=== PATIENT | male | born 1970 | race Caucasian/White ===

== ENCOUNTER 2021-07-18 02:35 | Emergency (ER) | payer BC ==
[2021-07-18] MEDS ORDERED: Ondansetron 4 MG/2 ML SDV IVPUSH ONE ×2 (02:59→04:14)
[2021-07-18] MEDS ORDERED: Famotidine 20 MG/2 ML SDV IVPUSH ONE (02:59)
[2021-07-18 03:45] LABS: CORONAVIRUS COVID-19 NAA NEGATIVE (NEGATIVE)
[2021-07-18] MEDS ORDERED: Loperamide 2 MG Cap PO ONE (04:13)
== END 2021-07-18 05:02 | disposition home or self-care (01) ==
LOC: JD.ED 02:35
DX: R55 Syncope and collapse (principal); R19.7 Diarrhea, unspecified; Z91.041 Radiographic dye allergy status; Z72.0 Tobacco use; Z79.899 Other long term (current) drug therapy; Z20.822 Contact with and (suspected) exposure to COVID-19
CPT/HCPCS: 0241U; 36415; 80053; 83690; 83735; 85025; 85610; 93005; 96374; 96375; 96376; 99284; A9270; J2405; J3490; 93010

== ENCOUNTER 2024-01-05 16:03 | Emergency (ER) | payer BC, OTHER | END 2024-01-05 18:02 | disposition left against medical advice (07) | LOC: JD.ED 16:03 | DX: Z53.21 Procedure and treatment not carried out due to patient leaving prior to being seen by health care provider (principal) ==

== ENCOUNTER 2024-01-06 07:41 | Emergency (ER) | payer OTHER ==
[2024-01-06] MEDS: methylPREDNISolone Sodium Succinate 125 MG/2 ML SDV IVPUSH ONE (08:27)
[2024-01-06] MEDS: Famotidine 20 MG/2 ML SDV IVPUSH ONE (08:30)
[2024-01-06] MEDS: diphenhydrAMINE 50 MG/ML SDV IVPUSH ONE (08:33)
[2024-01-06] MEDS: Sodium Chloride 0.9% 1,000 ML IV SCH (08:35)
[2024-01-06] MEDS: Iopamidol 612 MG/ML 100 ML Bottle IVPUSH ONE (09:47)
== END 2024-01-06 10:38 | disposition home or self-care (01) ==
LOC: JD.ED 07:41
DX: R22.1 Localized swelling, mass and lump, neck (principal); I10 Essential (primary) hypertension; E78.00 Pure hypercholesterolemia, unspecified; Z91.041 Radiographic dye allergy status; Z88.8 Allergy status to other drugs, medicaments and biological substances; Z79.899 Other long term (current) drug therapy
CPT/HCPCS: 70491; 70491-26; 96374; 96375; 99283-25; J1200; J2919; J3490; J7030; Q9967

== ENCOUNTER 2024-04-25 11:46 | Day surgery (SDC) | payer OTHER ==
[~2024-04-25 11:46] MED LIST: Lactated Ringers 1,000 ML IV SCH; Sodium Chloride 0.9% 10 ML Syringe FLUSH PRN; Sodium Chloride 0.9% 10 ML Syringe FLUSH SCH
[2024-04-25] MEDS ORDERED: HYDROmorphone 0.5 MG/0.5 ML Syringe IVPUSH PRN (12:58)
[2024-04-25] MEDS ORDERED: fentaNYL 100 MCG/2 ML SDV ONE (12:58)
[2024-04-25] MEDS ORDERED: Propofol 200 MG/20 ML SDV ONE (12:58)
[2024-04-25] MEDS ORDERED: fentaNYL 100 MCG/2 ML SDV IVPUSH PRN (12:58)
[2024-04-25] MEDS ORDERED: Ondansetron 4 MG/2 ML SDV IVPUSH PRN (12:58)
[2024-04-25] MEDS ORDERED: Midazolam 1 MG/ML 2 ML SDV ONE (12:58)
[2024-04-25] MEDS ORDERED: Ropivacaine 0.5% 5 MG/ML 30 ML SDV ONE (12:58)
[2024-04-25] MEDS: Albuterol/Ipratropium 3.0-0.5 MG/3 ML Neb Soln NEB ONE (13:23)
[2024-04-25] MEDS ORDERED: EPINEPHrine 1 MG/ML SDV ONE (13:36)
[2024-04-25] MEDS ORDERED: Lidocaine 1% with EPINEPHrine 1:100,000 20 ML MDV ONE (13:36)
[2024-04-25] MEDS ORDERED: Bupivacaine 0.5% 30 ML SDV ONE (13:37)
== END 2024-04-25 14:18 | disposition home or self-care (01) ==
LOC: JD.SDS 11:46
PROVIDERS: ATTEND Surgery
DX: D17.0 Benign lipomatous neoplasm of skin and subcutaneous tissue of head, face and neck (principal); I10 Essential (primary) hypertension; E78.00 Pure hypercholesterolemia, unspecified; F17.200 Nicotine dependence, unspecified, uncomplicated; Z91.041 Radiographic dye allergy status; Z88.8 Allergy status to other drugs, medicaments and biological substances; Z79.899 Other long term (current) drug therapy; Z53.8 Procedure and treatment not carried out for other reasons
CPT/HCPCS: J0171; J0665; J2250; J2704; J2795; J3010; J3490; J7620-GY

== ENCOUNTER 2024-05-02 11:17 | Day surgery (SDC) | payer OTHER ==
[~2024-05-02 11:17] MED LIST changes: -Lactated Ringers 1,000 ML IV SCH
[2024-05-02] MEDS: Lactated Ringers 1,000 ML IV SCH (12:05)
[2024-05-02] MEDS ORDERED: Ondansetron 4 MG/2 ML SDV IVPUSH PRN ×2 (12:58→14:16)
[2024-05-02] MEDS ORDERED: fentaNYL 100 MCG/2 ML SDV IVPUSH PRN ×2 (12:58→14:16)
[2024-05-02] MEDS ORDERED: HYDROmorphone 0.5 MG/0.5 ML Syringe IVPUSH PRN ×2 (12:58→14:16)
[2024-05-02] MEDS ORDERED: EPINEPHrine 1 MG/ML SDV ONE (13:09)
[2024-05-02] MEDS ORDERED: Propofol 200 MG/20 ML SDV ONE (13:26)
[2024-05-02] MEDS ORDERED: fentaNYL 100 MCG/2 ML SDV ONE (13:26)
[2024-05-02] MEDS ORDERED: Midazolam 1 MG/ML 2 ML SDV ONE (13:26)
[2024-05-02] MEDS ORDERED: Ondansetron 4 MG/2 ML SDV ONE (13:28)
[2024-05-02] MEDS ORDERED: Dexamethasone 4 MG/ML 5 ML MDV ONE (14:00)
[2024-05-02] MEDS ORDERED: Sugammadex Sodium 200 MG/2 ML VIAL IV ONE (14:03)
[2024-05-02] MEDS ORDERED: dexmedeTOMIDine HCl 200 MCG/2 ML SDV ONE (14:03)
[2024-05-02] MEDS: ePHEDrine 50 MG/ML SDV ONE (14:08)
[2024-05-02] MEDS: Lidocaine 1% with EPINEPHrine 1:100,000 20 ML MDV ONE (14:08)
[2024-05-02] MEDS: Bupivacaine 0.5% 30 ML SDV ONE (14:08)
== END 2024-05-02 16:30 | disposition home or self-care (01) ==
LOC: JD.SDS 11:17
PROVIDERS: ATTEND Surgery
DX: D17.0 Benign lipomatous neoplasm of skin and subcutaneous tissue of head, face and neck (principal); I10 Essential (primary) hypertension; E78.00 Pure hypercholesterolemia, unspecified; Z79.899 Other long term (current) drug therapy; Z91.041 Radiographic dye allergy status
CPT/HCPCS: 23140; J0171; J0665; J1100; J2250; J2405; J2704; J3010; J3490; J7120; 00300